=== PATIENT | female | born 1955 | race African-American/Black ===

== ENCOUNTER 2016-08-09 18:57 | Emergency (ER) | payer MEDICARE, MEDICAID ==
[~2016-08-09] VITALS: Ht 167.6 cm; Wt 104.3 kg
[~2016-08-09 18:57] MED LIST: CLAR500T4; HUMILIN; LANTUS; SULFAMETHOXAZOLE; humalog
[2016-08-09] MEDS ORDERED: HYDROCODONE/ACETAMINOPHEN 5/325MG TABLET PO ONE (21:30)
[2016-08-09 23:17] VITALS: BP 145/77
== END 2016-08-10 00:28 | disposition home or self-care (01) ==
LOC: ER 19:18
DX: M54.2 Cervicalgia (principal); M54.5 Low back pain; M25.522 Pain in left elbow; M79.605 Pain in left leg; E11.9 Type 2 diabetes mellitus without complications; Z88.1 Allergy status to other antibiotic agents; Z88.8 Allergy status to other drugs, medicaments and biological substances; Z79.4 Long term (current) use of insulin; W01.0XXA Fall on same level from slipping, tripping and stumbling without subsequent striking against object, initial encounter; Y93.01 Activity, walking, marching and hiking; Y92.512 Supermarket, store or market as the place of occurrence of the external cause; Y99.8 Other external cause status
CPT/HCPCS: 72040; 72100; 72220; 73080; 73590; 99284

== ENCOUNTER 2016-08-26 19:35 | Emergency (ER) | payer MEDICARE, MEDICAID ==
[~2016-08-26] VITALS: Ht 167.6 cm; Wt 91.0 kg
[2016-08-26] MEDS ORDERED: IBUPROFEN 400MG TABLET PO ONE (21:45)
[2016-08-26 22:14] VITALS: BP 138/78
[2016-08-26 22:29] LABS: BASOPHILS % 0.7 % (0.0-2.0); HEMATOCRIT. 40.5 % (36.0-48.0); HEMOGLOBIN. 13.3 g/dL (12.0-16.0); LYMPHOCYTES % 38.6 % (20.0-50.0); MEAN CORPUSCULAR HEMOGLOBIN 29.5 pg (28.0-32.0); MEAN CORPUSCULAR VOLUME 89.5 fL (81.0-99.0); MEAN PLATELET VOLUME 9.6 fl (7.4-10.4); MONOCYTES % 6.8 % (2.0-8.0); NEUTROPHILS % 45.9 % (40.0-76.0); PLATELET 245 x1000/uL (130-400); RED BLOOD CELL COUNT 4.52 mill/uL (4.2-5.4); RED CELL DISTRIBUTION WIDTH 13.4 % (11.6-14.6)
[2016-08-26 22:36] LABS: PARTIAL THROMBOPLASTIN TIME 25.8 sec (24.0-34.0); PROTHROMBIN TIME 10.6 sec
[2016-08-26 22:45] LABS: CARBON DIOXIDE 26 mEq/L (21-32); CHLORIDE 108 mEq/L (98-107); TROPONIN I < 0.02 ng/mL (0.00-0.04)
== END 2016-08-27 00:07 | disposition home or self-care (01) ==
LOC: ER 20:07
DX: E11.649 Type 2 diabetes mellitus with hypoglycemia without coma (principal); R07.9 Chest pain, unspecified; F17.200 Nicotine dependence, unspecified, uncomplicated; Z87.440 Personal history of urinary (tract) infections; Z90.49 Acquired absence of other specified parts of digestive tract; Z79.4 Long term (current) use of insulin; Z88.1 Allergy status to other antibiotic agents; Z88.8 Allergy status to other drugs, medicaments and biological substances
CPT/HCPCS: 36415; 71010; 80053; 82962; 83690; 84484; 85025; 85610; 85730; 93005; 99285

== ENCOUNTER 2016-11-08 07:44 | Emergency (ER) | payer MEDICARE, MEDICAID ==
[~2016-11-08] VITALS: Ht 165.1 cm; Wt 78.0 kg
[~2016-11-08 07:44] MED LIST changes: +INSU3INS6 SUBCUT; -LANTUS; -humalog; +humalog SQ
[2016-11-08 09:14] LABS: BASOPHILS % 0.7 % (0.0-2.0); CLARITY URINE CLEAR (CLEAR); COLOR URINE YELLOW (YELLOW); EOSINOPHILS % 2.3 % (0.0-5.0); GLUCOSE URINE 2+ (NEGATIVE); HEMATOCRIT. 41.5 % (36.0-48.0); HEMOGLOBIN. 13.8 g/dL (12.0-16.0); KETONES URINE NEGATIVE (NEGATIVE); LEUKOCYTE ESTERASE URINE NEGATIVE (NEGATIVE); LYMPHOCYTES % 17.5 % (20.0-50.0); MEAN CORPUSCULAR HEMOGLOBIN 30.6 pg (28.0-32.0); MEAN CORPUSCULAR VOLUME 92.2 fL (81.0-99.0); MEAN PLATELET VOLUME 8.8 fl (7.4-10.4); MONOCYTES % 5.6 % (2.0-8.0); NEUTROPHILS % 73.9 % (40.0-76.0); NITRITE URINE NEGATIVE (NEGATIVE); OCCULT BLOOD URINE TRACE (NEGATIVE); PLATELET 268 x1000/uL (130-400); PROTEIN URINE NEGATIVE (NEGATIVE); RED CELL DISTRIBUTION WIDTH 14.5 % (11.6-14.6); SPECIFIC GRAVITY URINE 1.012 (1.005-1.030); UROBILINOGEN URINE 0.2 E.U./dL (0.2-1.0)
[2016-11-08 09:24] LABS: CARBON DIOXIDE 30 mEq/L (21-32); CHLORIDE 106 mEq/L (98-107)
[2016-11-08 09:30] LABS: TROPONIN I < 0.02 ng/mL (0.00-0.04)
[2016-11-08 11:28] VITALS: BP 141/81
== END 2016-11-08 12:50 | disposition home or self-care (01) ==
LOC: ER 07:44
DX: E11.649 Type 2 diabetes mellitus with hypoglycemia without coma (principal); Z79.4 Long term (current) use of insulin; Z79.84 Long term (current) use of oral hypoglycemic drugs; Z90.89 Acquired absence of other organs; Z79.899 Other long term (current) drug therapy; R31.9 Hematuria, unspecified; R79.89 Other specified abnormal findings of blood chemistry
CPT/HCPCS: 36415; 80053; 81001; 82962; 84484; 85025; 93005; 99285

== ENCOUNTER 2021-03-22 17:05 | Emergency (ER) | payer MEDICARE, MEDICAID ==
[~2021-03-22] VITALS: Ht 167.6 cm; Wt 98.0 kg
[2021-03-22] MEDS ORDERED: ONDANSETRON 4MG ODT PO ONE (17:15)
[2021-03-22 20:25] VITALS: BP 125/74
== END 2021-03-22 20:27 | disposition home or self-care (01) ==
LOC: ER 17:05
DX: R11.0 Nausea (principal); E10.9 Type 1 diabetes mellitus without complications; I10 Essential (primary) hypertension; Z90.49 Acquired absence of other specified parts of digestive tract; Z79.4 Long term (current) use of insulin; Z88.6 Allergy status to analgesic agent; Z88.1 Allergy status to other antibiotic agents
CPT/HCPCS: 99283; Q0162

== ENCOUNTER 2022-03-10 07:35 | Emergency (ER) | payer MEDICARE, MEDICAID ==
[~2022-03-10] VITALS: Ht 172.7 cm; Wt 77.0 kg
[2022-03-10 07:37] VITALS: BP 182/88
[2022-03-10] MEDS ORDERED: IBUPROFEN 600MG TABLET PO ONE (08:45)
[2022-03-10] MEDS ORDERED: ACETAMINOPHEN 325MG TABLET PO ONE (10:45)
[2022-03-10] MEDS ORDERED: LIDO700A15 TP (11:00)
== END 2022-03-10 11:20 | disposition home or self-care (01) ==
LOC: ER 07:35
DX: S40.011A Contusion of right shoulder, initial encounter (principal); S20.211A Contusion of right front wall of thorax, initial encounter; E11.9 Type 2 diabetes mellitus without complications; I10 Essential (primary) hypertension; Z88.8 Allergy status to other drugs, medicaments and biological substances; Z88.1 Allergy status to other antibiotic agents; Z90.49 Acquired absence of other specified parts of digestive tract; W18.30XA Fall on same level, unspecified, initial encounter; Y93.89 Activity, other specified; Y92.89 Other specified places as the place of occurrence of the external cause; Y99.8 Other external cause status
CPT/HCPCS: 71101; 99283

== ENCOUNTER 2022-10-10 18:59 | Emergency (ER) | payer MEDICARE, MEDICAID ==
[~2022-10-10] VITALS: Ht 170.2 cm; Wt 91.0 kg
[~2022-10-10 18:59] MED LIST changes: +LIDO700A15 TP
[2022-10-10 19:19] VITALS: O2SAT 100
[2022-10-10 22:20] LABS: BASOPHILS % 0.4 % (0.0-2.0); EOSINOPHILS % 0.2 % (0.0-5.0); HEMATOCRIT. 41.2 % (36.0-48.0); HEMOGLOBIN. 12.9 g/dL (12.0-16.0); LYMPHOCYTES % 9.5 % (20.0-50.0); MEAN CORPUSCULAR HEMOGLOBIN 29.7 pg (28.0-32.0); MEAN CORPUSCULAR HGB CONC 31.4 g/dL (31.0-37.0); MEAN CORPUSCULAR VOLUME 94.6 fL (81.0-99.0); MEAN PLATELET VOLUME 9.6 fl (7.4-10.4); MONOCYTES % 3.8 % (2.0-8.0); NEUTROPHILS % 86.1 % (40.0-76.0); PLATELET 277 x1000/uL (130-400); RED BLOOD CELL COUNT 4.35 mill/uL (4.2-5.4); RED CELL DISTRIBUTION WIDTH 14.2 % (11.6-14.6); WHITE BLOOD COUNT 13.7 x1000/uL (4.5-11.0)
[2022-10-10 22:23] LABS: CHLORIDE 108 mEq/L (98-107); INDEX HEMOLYSI 1 (1-3); INDEX ICTERIC 1 (1-4); INDEX LIPEMIC 1 (1-3); POTASSIUM 4.7 mEq/L (3.5-5.1); SODIUM 139 mEq/L (136-145)
[2022-10-10 22:29] VITALS: BP 148/79; PULSE 90; RESP 16; TEMP 97.7
[2022-10-10 22:32] LABS: ALANINE AMINOTRANSFERASE 74 IU/L (13-61); ALBUMIN 3.6 g/dL (3.4-5.0); ASPARTATE AMINOTRANSFERASE 65 IU/L (15-37); BILIRUBIN TOTAL 0.6 mg/dL (0.1-1.0); CALCIUM 9.3 mg/dL (8.5-10.1); CARBON DIOXIDE 25 mEq/L (21-32); CREATININE 0.7 mg/dL (0.6-1.3); GLUCOSE 183 mg/dL (70-105); PROTEIN TOTAL 7.9 g/dL (6.0-8.3); UREA NITROGEN BLOOD 14 mg/dL (7-21)
== END 2022-10-10 22:29 | disposition left against medical advice (07) ==
LOC: ER 18:59
DX: E11.649 Type 2 diabetes mellitus with hypoglycemia without coma (principal); I10 Essential (primary) hypertension; Z88.8 Allergy status to other drugs, medicaments and biological substances; Z90.49 Acquired absence of other specified parts of digestive tract; Z87.440 Personal history of urinary (tract) infections; Z88.1 Allergy status to other antibiotic agents; Z79.899 Other long term (current) drug therapy
CPT/HCPCS: 36415; 80053; 82962; 85025; 99283

== ENCOUNTER 2023-01-10 22:26 | Emergency (ER) | payer MEDICARE, MEDICAID ==
[~2023-01-10] VITALS: Ht 167.6 cm; Wt 89.5 kg
[2023-01-10 22:45] VITALS: BP 136/53; PULSE 79; RESP 15; TEMP 97.8; O2SAT 96
== END 2023-01-11 05:10 | disposition home or self-care (01) ==
LOC: ER 22:26
DX: J02.9 Acute pharyngitis, unspecified (principal); E11.9 Type 2 diabetes mellitus without complications; K59.00 Constipation, unspecified; Z87.440 Personal history of urinary (tract) infections; Z90.49 Acquired absence of other specified parts of digestive tract; Z79.899 Other long term (current) drug therapy
CPT/HCPCS: 99281

== ENCOUNTER 2024-03-03 07:05 | Emergency (ER) | payer MEDICARE, MEDICAID ==
[~2024-03-03] VITALS: Ht 167.6 cm; Wt 77.0 kg
[2024-03-03 07:08] VITALS: O2SAT 100
[2024-03-03] MEDS: ACETAMINOPHEN 325MG TABLET PO ONE (08:17)
[2024-03-03 10:56] VITALS: BP 167/77; PULSE 68; RESP 16; TEMP 36.55848; O2SAT 99
== END 2024-03-03 10:58 | disposition home or self-care (01) ==
LOC: ER 07:05
DX: M79.641 Pain in right hand (principal); M54.9 Dorsalgia, unspecified; M54.2 Cervicalgia; E11.9 Type 2 diabetes mellitus without complications; Z88.1 Allergy status to other antibiotic agents; Z79.899 Other long term (current) drug therapy; V43.52XA Car driver injured in collision with other type car in traffic accident, initial encounter; Y93.89 Activity, other specified; Y92.89 Other specified places as the place of occurrence of the external cause; Y99.8 Other external cause status
CPT/HCPCS: 73130; 99284

== ENCOUNTER 2024-04-27 12:28 | Emergency (ER) | payer MEDICARE, MEDICAID ==
[~2024-04-27] VITALS: Ht 162.6 cm; Wt 70.0 kg
[2024-04-27 12:30] VITALS: O2SAT 99
[2024-04-27] MEDS: IBUPROFEN 600MG TABLET PO ONE (12:57)
[2024-04-27 14:58] VITALS: BP 107/68; PULSE 70; RESP 18; TEMP 36.7; O2SAT 98
== END 2024-04-27 16:14 | disposition home or self-care (01) ==
LOC: ER 12:28
DX: S01.01XA Laceration without foreign body of scalp, initial encounter (principal); E11.9 Type 2 diabetes mellitus without complications; M54.9 Dorsalgia, unspecified; R51.9 Headache, unspecified; Z88.1 Allergy status to other antibiotic agents; Z79.899 Other long term (current) drug therapy; Z79.4 Long term (current) use of insulin; W01.0XXA Fall on same level from slipping, tripping and stumbling without subsequent striking against object, initial encounter; Y93.89 Activity, other specified; Y92.89 Other specified places as the place of occurrence of the external cause; Y99.8 Other external cause status
CPT/HCPCS: 12002; 29125; 72100; 73560; 73590; 82962; 99284